=== PATIENT | female | born 1995 | race Caucasian/White ===

== ENCOUNTER 2017-01-30 10:05 | Outpatient (CLI) | payer OTHER ==
--- NOTE | 2017-01-30 11:46 | DIAGNOSTIC IMAGING REPORT ---
PROCEDURE: US OB DETAILED ANATOMIC INDICATION: ANATOMY TECHNIQUE: [place] scale, color, and spectral Doppler images of the second trimester gravid uterus were obtained. COMPARISON: None. FINDINGS: A single living intrauterine is in variable presentation. There is regular cardiac activity at a rate of 132 beats per minute. The placenta is posterior and away from the internal cervical os. The cervix is closed measuring approximately 3.5 cm in length. The amniotic fluid volume is subjectively normal. Biparietal diameter 4.3 cm, 18 weeks 6 days Head circumference 16.1 cm, 19 weeks 0 days Abdominal circumference 13.5 cm, 19 weeks 0 days Femur length 2.9 cm, 18 weeks 5 days Head to abdominal circumference ratio and femur length to abdominal circumference ratios are normal. Estimated weight 262 g plus/minus 39 g Composite gestational age 18 weeks 6 days There was visualization of a number of normal structures including the intracranial contents, facial features, nuchal region, spine, four-chamber heart and outflow tracts to the extent that could be visualized, diaphragm, fluid-filled stomach, kidneys, abdomen, urinary bladder, upper and lower extremities, and genitals. A three-vessel umbilical cord, normal and placental cord insertion sites were seen. IMPRESSION: 1. Single living intrauterine with a composite gestational age of 18 weeks 6 days, in good agreement with the clinically assigned gestational age of 19 weeks 0 days. 2. Symmetric growth and normal anatomy.
== END 2017-01-30 23:00 | disposition home or self-care (01) ==
LOC: LAB SRH 10:05 → US SRH 10:05
DX: Z34.90 Encounter for supervision of normal pregnancy, unspecified, unspecified trimester (principal); Z3A.18 18 weeks gestation of pregnancy